=== PATIENT | female | born 1995 ===

== ENCOUNTER → 2022-11-10 | Outpatient (CLI) | payer OTHER ==
[2022-11-10 15:30] VITALS: BP 119/82; PULSE 82; TEMP 97.8; BMI 62.8
--- NOTE | 2022-11-10 15:54 | P.HPBAR ---
Bariatric H&P - History & Physicial H&P Date: 11/10/22 History & Physicial: Visit/CC: new patient Patient initial contact: Initial weight: Initial weight in pounds: Height: 5 ft 1 in Initial BMI: Last weight: Current weight: 151.046 kg Current weight in pounds: 333.00 Current BMI: 62.8 [place] body weight (based on NIH guidelines): 47.627 kg Excess body weight loss: The patient is a 26 year-old F who presents for Bariatric Assessment. No troubles with weight with family. Has GERD. Her hgihest is 340 pounds. No preference. Lower back pain, legs, feet. No hip pain. She is type II diabetic. No sleep apnea check. Still has gallbladder. She has diarrhea. SHe was on pills for wegiht loss. Past Medical History Past Medical History: Diabetes Mellitus, GERD/Reflux, Hyperlipidemia, Hypertension History of Any Multi-Drug Resistant Organisms: MRSA Year Discovered:: 2012 MDRO Source:: Right breast Past Surgical History: No Surgical Hx Reported Past Anesthesia/Blood Transfusion Reactions: No Reported Reaction Past Psychological History: Anxiety, Depression Smoking Status: Former smoker Past Alcohol Use History: None Reported Past Drug Use History: None Reported Surgical - Exam Vital Signs Temp Pulse BP 97.8 F 82 119/82 11/10/22 15:26 11/10/22 15:26 11/10/22 15:26 Bariatric Checklist Checklist: Plan: Checklist: EGD: 1. Hiatal hernia: 2. H. Pylori: HgbA1c: Vitamin D: Smoking: Primary care physician referral: PCP in [place] Psychiatry clearance: Cardiology clearance: Sleep study: Diet journal: VTE risk score: VTE risk level: Rehab needs at discharge:
[2022-11-10 17:40] LABS: INR 0.9 (<1.2); Partial Thromboplastin Time 25.8 sec (22.0-30.0); Prothrombin Time 9.5 sec (9.0-12.0)
[2022-11-11 01:13] LABS: HCT 46.5 % (37.2-46.3); HGB 14.3 g/dL (12.0-15.0); MCH 26.5 pg (27.0-32.0); MCHC 30.8 g/dL (32.0-37.0); MCV 86.3 fL (80.0-97.0); NRBC Per 100 WBC 0 /100 WBCS (0.0-0.0); Platelet Count 313 X 10*3/uL (140-440); RBC 5.39 X 10*6/uL (4.10-5.20); RDW 14.8 % (11.5-14.5); WBC 10.62 X 10*3/uL (4.50-10.00)
[2022-11-11 02:31] LABS: % Iron Saturation 9.41 (12.00-45.00); ALT 29 U/L (8-44); AST 17 U/L (13-35); African American GFR (CKD) 118.5 (60.0-200.0); Albumin 4.4 g/dL (3.8-4.9); Albumin/Globulin Ratio 1.39 (1.60-3.17); Alkaline Phosphatase 111 U/L (41-126); BUN/Creat Ratio 13.93 Ratio (12.00-20.00); Blood Urea Nitrogen 11.1 mg/dL (9.0-27.0); Calcium 10.2 mg/dL (8.7-10.3); Chloride 101 mmol/L (96-109); Globulin 3.2 g/dL (1.6-3.3); Glucose 115 mg/dL (70-110); Iron 40 ug/dL (50-170); Magnesium 2.2 mg/dL (1.5-2.4); Non-African American GFR(CKD) 102.2 (60.0-200.0); Phosphorus 4.5 mg/dL (2.4-5.1); Potassium 4.5 mmol/L (3.5-5.5); Sodium 141 mmol/L (135-145); Total Iron Binding Capacity 428 ug/dL (228-460); Total Protein 7.6 g/dL (6.2-8.2)
[2022-11-11 03:37] LABS: LDL Cholesterol,Calculated 114.4 mg/dL (0.0-131.0); Prealbumin 23.8 mg/dL (18.0-42.0)
[2022-11-11 13:00] LABS: Zinc, Serum 61 ug/dL (60-130)
[2022-11-12 11:50] LABS: Vitamin A 52 ug/dL (38-106)
== END ==
LOC: EDBD 14:30 → BARWHC3 14:30
PROVIDERS: ATTEND Surgery Plastic and Reconstructive Surgery
DX: E66.01 Morbid (severe) obesity due to excess calories (principal); E89.1 Postprocedural hypoinsulinemia; D50.8 Other iron deficiency anemias; D50.9 Iron deficiency anemia, unspecified; E44.0 Moderate protein-calorie malnutrition; E44.1 Mild protein-calorie malnutrition; E45 Retarded development following protein-calorie malnutrition; E46 Unspecified protein-calorie malnutrition; E55.9 Vitamin D deficiency, unspecified; K74.1 Hepatic sclerosis; N19 Unspecified kidney failure; T56.894A Toxic effect of other metals, undetermined, initial encounter; Z71.51 Drug abuse counseling and surveillance of drug abuser; Z68.44 Body mass index [BMI] 60.0-69.9, adult; E11.9 Type 2 diabetes mellitus without complications; K21.9 Gastro-esophageal reflux disease without esophagitis; E78.5 Hyperlipidemia, unspecified; I10 Essential (primary) hypertension; Z79.84 Long term (current) use of oral hypoglycemic drugs
CPT/HCPCS: 84255; 84134; 84425; 80061; 80053; 82607; 82728; 82525; 82746; 83540; 83550; 83735; 84100; 84443; 84590; 84630; 85027; 85610; 85730; 82306; 83970; 83036; 80307; 93005; G0480; G0482; G0463; 80323; 99202